=== PATIENT | female | born 1970 | race African-American/Black ===

== ENCOUNTER 2020-09-30 01:52 | Outpatient (CLI) | payer OTHER, SELFPAY ==
[2020-09-30 21:19] LABS: SARS-CoV-2 RNA PCR Negative
== END 2020-09-30 01:53 | disposition home or self-care (01) ==
LOC: ANHCOVIDDT 01:54
PROVIDERS: PCP Family Medicine; Visit Provider Obstetrics & Gynecology
DX: Z01.812 Encounter for preprocedural laboratory examination (principal); Z20.828 Contact with and (suspected) exposure to other viral communicable diseases
CPT/HCPCS: 87635; C9803; U0003

== ENCOUNTER 2020-10-04 02:20 | Day surgery (SDC) | payer OTHER, SELFPAY ==
[2020-09-21 15:10] VITALS: BMI 30.9
--- NOTE | 2020-10-03 12:45 | P.PNAN_ITS ---
Anes - Initial Pre Proc Eval Procedure: Operation Date: 10/04/20 08:15 Proposed Procedures p Laparoscopic Assisted Total Vaginal Hysterectomy With Bilateral Salpingo- Oophorectomy - Nabeel Mcdonnell MD Date/Time: 10/03/20 12:45 Surgeon: Nabeel Mcdonnell MD Pre Op Diagnosis: Uterine Lieomyoma Patient Data Age: 50 Gender: F Height: 1.57 m Weight: 76.66 kg Allergies Allergy/AdvReac Type Severity Reaction Status Date / Time acetaminophen AdvReac Nausea Verified 10/04/20 07:01 gluten AdvReac Gastrointestinal Verified 10/04/20 07:01 Upset Home Medications Medication Instructions Recorded Confirmed Type Vitamin C 1 tablet PO DAILY 09/21/20 10/04/20 History calcium 1 tablet PO DAILY 09/21/20 10/04/20 History ywfhhrt-[id number]-bahn 1 tablet PO DAILY 09/21/20 10/04/20 History drospirenone (contraceptive) 4 mg PO DAILY 09/21/20 10/04/20 History [Slynd] iron 1 tablet PO DAILY 09/21/20 10/04/20 History multivitamin 1 tablet PO DAILY 09/21/20 10/04/20 History omega-3 fatty acids [Fish Oil] 1,000 mg PO DAILY 09/21/20 10/04/20 History Patient hx anesthesia problems: none Family hx anesthesia problems: none [facility] Past Medical History Medical History (Updated 10/03/20 @ 12:46 by Hollis Kumar DO) Anemia Fibroid Surgical History Surgical History (Updated 10/03/20 @ 12:46 by Hollis Kumar DO) History of History of tubal ligation Social History Social History Smoking status: Never smoker Alcohol intake: current Drinks per week: 2 Spiritual care concerns: No Anes - Eval Final PreProcedure Day of Procedure 10/03/20 12:45 Patient weight: obese Heart: regular rate and rhythm Lungs: clear to auscultation and normal air movement Airway: Mallampati scale class 1 Neurological: alert and oriented Last oral intake: >/= 8 hours ASA classification: II Emergent: no Anesthetic plan: proceed Anesthesia type and monitoring: general ETT and standard monitoring Informed Consent: The patient's anesthetic plan and its attendant risks and benefits were discussed with the patient/family/POA. Questions were solicited and answers provided to the satisfaction of the patient/family/POA.
[2020-10-04] VITALS (15 sets, daily range): BP systolic 96–137; BP diastolic 50–86; PULSE 71–104; RESP 14–20; TEMP 36.2–36.7; O2SAT 94–100
[2020-10-04] MEDS: KETOROLAC 15 MG/ML VIAL (*BKC) IV PUSH (07:22)
[2020-10-04] MEDS: LACTATED RINGERS 1,000 ML 30 ML IV CONT ×2 (07:27→12:18)
--- NOTE | 2020-10-04 07:32 | WPDHPUPDATE1 ---
History and Physical Update Update Date/Time: 10/04/20 07:32 History and Physical has been reviewed, including an updated exam of the patient. There are NO changes in the patient's condition. Risks, benefits, and alternatives have been discussed and questions answered. Patient agrees to proceed with procedure.
[2020-10-04] MEDS: ceFAZolin 2 GM/D5W 50 ML 2 GM/50 ML BAG IVPB (09:01)
--- NOTE | 2020-10-04 12:01 | SUR.OPER ---
EBL:200cc
--- NOTE | 2020-10-04 12:02 | SUR.OPER ---
URINE:100cc
--- NOTE | 2020-10-04 12:28 | PM.PROC ---
Procedure Note - Detailed Date of procedure: 10/04/20 Pre-op diagnosis: Uterine Lieomyoma Severe menorrhagia Post-op diagnosis: same Procedure performed: Total laparoscopic hysterectomy bilateral salpingo-oophorectomy Description of procedure: The patient was taken to the operating room. She was prepped and draped in the dorsal lithotomy position. A speculum was placed in the vagina. The cervix was grasped with a tenaculum. Stay sutures were placed at 3 and 9:00 a.m. of 0 Vicryl. The stay sutures were brought through the Catr[place]ito up. The HUMBLE manipulator was placed in the vagina with a fixed Catr[place]ito cup. The cup was then pushed up around the cervix. The sutures were tied to the handle of the HUMBLE manipulator. A 5 mm incision was made on the abdominal skin of the left upper quadrant using a scalpel. A 5 mm trocar was inserted into the intra-abdominal cavity under direct visualization the scope. Pneumoperitoneum was achieved. An 11 mm incision was made in the left lower quadrant of the abdomen with a scalpel. A 11 mm trocar was inserted into the intra-abdominal cavity under direct visualization the scope. A 5 mm periumbilical incision was made. A 5 mm scope was placed into the intra-abdominal cavity under direct visualization of the scope. The ureters were identified. The ureters were observed to be away from the infundibulopelvic ligaments. These infundibulopelvic ligaments were isolated, cauterized, and transected with LigaSure cautery. This was done in a bilateral fashion. The para ovarian tissue along the pelvic sidewall was cauterized and transected in a bilateral fashion using the ligature cautery. The round ligaments were cauterized and transected bilaterally with LigaSure cautery. The broad ligaments were cauterized and transected along the lateral aspects of the uterus down the level of the uterine arteries. A bladder flap was created using sharp and blunt dissection. The ureters were dissected out bilaterally down to the level of the uterine arteries. The could be visualized from the pelvic brim down the uterine arteries. Staying very close to the cervix the parametrium was cauterized transected in a stepwise fashion down to the level of the Catrachito cup. The Bladder flap was moved distally over the Catrachito cup using sharp and blunt dissection. The cup was visualized and a complete 360 degree papillary around the cervix. An incision was made with unipolar cautery down under the Catr[place]ito cup creating a colpotomy incision all the way around the cervix. The uterus was transected at the cervix. The body of the uterus was then cut into 4 pieces using a tenaculum and unipolar cautery. Prior to this a right lower quadrant trocar was placed. A 5 mm skin incision was made with a scalpel and a 5 mm trocar was inserted under direct visualization of the scope. The uterus was cut into 4 pieces using a unipolar cautery 2 tenaculum putting traction, counter traction on the uterus. To the pieces were tagged with sutures and surgical clips were placed on the sutures. Those surgical clips were placed in the vagina. The tagged pieces were taken out through the vagina 1st of the cervix was removed along with the HUMBLE manipulator through the vagina. The 2 pieces were pulled out easily through the vagina. Remaining pieces were then placed in the vagina. The pneumo occluder was removed the pieces were removed and the pneumo occluder was replaced. The vagina was closed with 0 V lock suture in a running fashion. The ureters were identified again and found to be intact elevated and the uterine arteries. The pelvis was irrigated with a copious amount of antibiotic irrigation. The pneumoperitoneum was reduced. The trocars were removed. The skin was closed subcuticular 4 Monocryl covered with Dermabond. The pneumo occluder was removed from the vagina. The vagina was irrigated with Betadine. The patient tolerated the procedure well. She was taken to the recovery room in stable cond
[2020-10-04] MEDS: ONDANSETRON INJ 4 MG/2 ML VIAL IV PUSH (13:15)
--- NOTE | 2020-10-04 13:23 | PC.NURSE ---
Pt admitted to room 289 per bed from PACU. Alert and oriented x3. Call light within reach.
[2020-10-04] MEDS: KETOROLAC 30 MG/ML VIAL (*BKC) IV PUSH ×2 (14:19→19:46)
[2020-10-04] MEDS: METOCLOPRAMIDE HCL INJ 10 MG/2 ML VIAL (14:20)
[2020-10-04] MEDS: LACTATED RINGERS 1,000 ML 125 ML IV CONT (14:22)
[2020-10-04] MEDS: diphenhydrAMINE HCl INJ 50 MG/ML VIAL 25 MG IV PUSH (16:34)
[2020-10-04] MEDS: LACTATED RINGERS 1,000 ML 125 ML (21:30)
[2020-10-04] MEDS: SIMETHICONE 80 MG TAB.CHEW (21:30)
[2020-10-05 04:30] VITALS: BP 119/73; PULSE 111; RESP 16; TEMP 36.8
[2020-10-05] MEDS: KETOROLAC 30 MG/ML VIAL (*BKC) IV PUSH (04:30)
[2020-10-05] MEDS: SIMETHICONE 80 MG TAB.CHEW PO ×2 (04:30→08:38)
--- NOTE | 2020-10-05 07:59 | WPDANESPN ---
Anes - Prog Note Post-Op Date/Time: 10/05/20 07:59 Cardiovascular status: normal Respiratory status: normal Airway patency: baseline Mental status: baseline Post-Op hydration status: normal Vital Signs: Last Vital Signs Temp 36.8 C 10/05/20 04:30 Pulse 111 H 10/05/20 04:30 Resp 16 10/05/20 04:30 BP 119/73 10/05/20 04:30 Pulse Ox 99 10/04/20 16:00 Pain Score (VAS): 3 I/O: Intake & Output 10/04/20 10/04/20 10/05/20 15:59 23:59 07:59 Intake Total 671 726 6646 Output Total 30 175 1000 Balance 470 -25 0 10/04/20 08:01 Blood Type B Positive Antibody Screen Negative Post-procedural complaints: nausea (severe overnight) and vomiting Patient Feedback: Patient satisfied with anesthetic care.
--- NOTE | 2020-10-05 08:16 | PM.GYNPNOP ---
GLOBAL RECRUITER - A/P Postoperative Procedures: Procedures Operation Date: 10/04/20 08:15 Actual Procedures Side Surgeon p Laparoscopic Assisted Total Vaginal Hysterectomy With Bilateral Salpingo-Oophorectomy Bilateral Nabeel Mcdonnell MD Postoperative day: 1 Postoperative status: doing well and other (Tollerating Regular Diet) Postoperative plan: routine post-op care and discharge Time Spent With Patient Time: Total time spent is greater than 50% in coordination of care (as documented) at patient's floor/unit and/or counseling patient: Time with patient: 15 - 25 minutes GLOBAL RECRUITER- PN:Subj Post-Op Subjective Date/time seen: 10/05/20 08:16 Subjective: patient reports feeling better, pain is well controlled and patient is tolerating oral intake Exam Const: General: cooperative, healthy appearing, comfortable and no acute distress Resp: Auscultation: no crackles, no rales, no rhonchi and no wheezes Cardio: Rhythm: regular rhythm Heart sounds: no click and no murmurs GI: Inspection: non-distended Auscultation: normal bowel sounds Other: Incisions - CDI Extrem: General: normal to inspection, no pedal edema and no calf tenderness GLOBAL RECRUITER - PN: Obj Data Vital Signs Vital Signs: Vital Signs - 24 hr 10/04/20 12:18 10/04/20 12:30 10/04/20 12:45 Temperature 97.2 F L Pulse Rate 71 86 77 Respiratory Rate 14 18 18 Blood Pressure 97/50 L 105/54 L 109/50 L Pulse Oximetry 100 99 100 10/04/20 13:00 10/04/20 13:10 10/04/20 13:33 Temperature 97.8 F Pulse Rate 91 82 78 Respiratory Rate 18 18 16 Blood Pressure 102/53 L 106/51 L 121/56 L Pulse Oximetry 96 94 100 10/04/20 13:45 10/04/20 14:00 10/04/20 14:30 Temperature Pulse Rate 93 85 83 Respiratory Rate 16 16 16 Blood Pressure 123/66 116/56 L 121/65 Pulse Oximetry 100 100 100 10/04/20 15:00 10/04/20 16:00 10/04/20 17:00 Temperature 97.3 F L Pulse Rate 97 104 H 99 Respiratory Rate 16 20 18 Blood Pressure 96/76 L 117/77 137/80 Pulse Oximetry 100 99 10/04/20 18:45 10/04/20 22:50 10/05/20 04:30 Temperature 97.6 F 97.9 F 98.2 F Pulse Rate 93 87 111 H Respiratory Rate 16 16 16 Blood Pressure 114/69 109/65 119/73 Pulse Oximetry Intake/Output Intake/Output: Intake & Output 10/02/20 10/03/20 10/04/20 10/05/20 23:59 23:59 23:59 23:59 Intake Total 650 1000 Output Total 205 1000 Balance 445 0 Meds/Results Medications: Active Medications Generic Name Dose Route Start Last Admin Trade Name Freq PRN Reason Stop Dose Admin Benzocaine 1 lozenge 10/04/20 17:16 Benzocaine/Menthol (*Bkc) 18 Ea Lozenge PO PRN PRN Sore Throat Ibuprofen 600 mg 10/04/20 13:15 Ibuprofen 600 Mg Tablet PO Q6H PRN Cramping Ketorolac Tromethamine 30 mg 10/04/20 13:15 10/05/20 04:30 Ketorolac 30 Mg/Ml Vial (*Bkc) IV PUSH 10/09/20 13:16 30 mg Q6H PRN Administration Pain Rated 4-6 Metoclopramide HCl 10 mg 10/04/20 14:05 Metoclopramide Hcl Inj 10 Mg/2 Ml Vial IV PUSH Q6HR PRN Nausea Naloxone HCl 0.1 mg 10/04/20 13:15 Naloxone Hcl 0.4 Mg/Ml Vial IV PUSH Q2M PRN Respiratory rate less than 10 Ondansetron HCl 4 mg 10/04/20 13:15 Ondansetron Inj 4 Mg/2 Ml Vial IV PUSH Q6H PRN Nausea And Vomiting Simethicone 80 mg 10/04/20 21:34 10/05/20 04:30 Simethicone 80 Mg Tab.Chew PO 80 mg Q2HR PRN Administration Gas Discomfort Labs Labs: Laboratory Results - last 24 hr 10/04/20 08:01 Blood Type B Positive Antibody Screen Negative
[2020-10-05 08:20] VITALS: BP 116/75; PULSE 90; RESP 16; TEMP 37.1; O2SAT 100
[2020-10-05] MEDS: BENZOCAINE/MENTHOL (*BKC) 18 EA LOZENGE 1 LOZENGE PO (08:39)
--- NOTE | 2020-10-05 08:53 | PC.NURSE ---
Abdominal binder and incentive spirometer given to pt and explained use and purpose of each. Pt states understanding.
--- NOTE | 2020-10-05 10:00 | PC.NURSE ---
Pt states she normally takes ibuprofen for pain at home. Discussed with pt that if ibuprofen works the best for her pain control that she can continue that at home. Pt discussed the medication prescribed for her to take at home ([facility]den), stating that she normally does not take acetaminophen products. Pt. states ibuprofen will work for home use.
[2020-10-05] MEDS: diphenhydrAMINE HCl CAP 25 MG CAPSULE PO (10:30)
== END 2020-10-05 10:37 | disposition home or self-care (01) ==
LOC: ANHSURGERY 06:00 → ANHOB2 13:17
PROVIDERS: PCP Family Medicine; Visit Provider Obstetrics & Gynecology
PROC: 0UT9FZZ Resection of Uterus, Via Natural or Artificial Opening With Percutaneous Endoscopic Assistance (ICD-10-PCS; CPT 58573; principal; 2020-10-04 08:15)
DX: D25.1 Intramural leiomyoma of uterus (principal); D25.2 Subserosal leiomyoma of uterus; N80.0 Endometriosis of uterus; N73.6 Female pelvic peritoneal adhesions (postinfective); D27.0 Benign neoplasm of right ovary; N83.02 Follicular cyst of left ovary; D25.9 Leiomyoma of uterus, unspecified; E66.9 Obesity, unspecified; Z68.31 Body mass index [BMI] 31.0-31.9, adult
CPT/HCPCS: 58573; 36415; 86850; 86900; 86901; 88307; 99199; A9270; C1713; J0330; J0690; J1100; J1170; J1200; J1885; J2250; J2405; J2704; J2710; J2765; J3010; J7120

== ENCOUNTER → 2021-03-22 10:53 | Outpatient (CLI) | payer OTHER, SELFPAY ==
--- NOTE | ~2021-03-22 | MM_ITS ---
EXAMINATION: MM screening [facility] BI w [place] HISTORY: Screening TECHNIQUE: Craniocaudal and mediolateral oblique 3-D tomosynthesis images were obtained and synthetic 2-D images were generated. CAD analysis was submitted and interpreted. COMPARISON: Comparison to multiple prior studies sequentially, with oldest reviewed study dated 06/02. BREAST PARENCHYMAL COMPOSITION: There are scattered areas of fibroglandular density. FINDINGS: There is no evidence of suspicious mass, calcification, or architectural distortion to sugg est malignancy in either breast. There has been no suspicious interval change. IMPRESSION: 1. No mammographic evidence of malignancy. 2. Recommend routine screening mammography in one year. BI-RADS Category 1: Negative Reviewed, dictated and finalized at location A.
== END ==
PROVIDERS: Visit Provider Obstetrics & Gynecology
DX: Z12.31 Encounter for screening mammogram for malignant neoplasm of breast (principal)
CPT/HCPCS: 77063; 77067

== ENCOUNTER → 2022-07-12 11:34 | Outpatient (CLI) | payer OTHER, SELFPAY ==
--- NOTE | ~2022-07-12 | MM_ITS ---
EXAMINATION: MM screening [facility]ulu BI w ok HISTORY: Screening TECHNIQUE: Craniocaudal and mediolateral oblique 3-D tomosynthesis images were obtained and synthetic 2-D images were generated. CAD analysis was submitted and interpreted. COMPARISON: Comparison to multiple prior studies sequentially, with oldest reviewed study dated 06/02. BREAST PARENCHYMAL COMPOSITION: Breast composed of scattered areas of fibroglandular density FINDINGS: There is no evidence of suspicious mass, calcification, or architectural distortion to sugg est malignancy in either breast. There has been no suspicious interval change. IMPRESSION: 1. No mammographic evidence of malignancy. 2. Recommend routine screening mammography in one year. BI-RADS Category 1: Negative Reviewed, dictated and finalized at location A.
== END ==
PROVIDERS: PCP Internal Medicine; Visit Provider Internal Medicine
DX: Z12.31 Encounter for screening mammogram for malignant neoplasm of breast (principal)
CPT/HCPCS: 77063; 77067

== ENCOUNTER → 2023-09-08 12:19 | Outpatient (CLI) | payer OTHER, SELFPAY ==
--- NOTE | ~2023-09-08 | MM_ITS ---
EXAMINATION: MM screening lulu BI w ok HISTORY: Screening mammogram TECHNIQUE: Craniocaudal and mediolateral oblique 3-D tomosynthesis images were obtained and synthetic 2-D images were generated. CAD analysis was submitted and interpreted. COMPARISON: 07/12/2022, 03/22/2021, 12/17/2018 bilateral screening mammogram examinations BREAST PARENCHYMAL COMPOSITION: There are scattered areas of fibroglandular density. FINDINGS: There is no evidence of suspicious mass, calcification, or architectural distortion to sugg est malignancy in either breast. There has been no suspicious interval change. IMPRESSION: 1. No mammographic evidence of malignancy. 2. Recommend routine screening mammography in one year. BI-RADS Category 1: Negative Reviewed, dictated and finalized at location A.
== END ==
PROVIDERS: PCP Internal Medicine; Visit Provider Internal Medicine
DX: Z12.31 Encounter for screening mammogram for malignant neoplasm of breast (principal)
CPT/HCPCS: 77063; 77067

== ENCOUNTER 2024-09-10 11:40 | Outpatient (CLI) | payer OTHER, SELFPAY ==
--- NOTE | ~2024-09-10 | MM_ITS ---
EXAMINATION: MM screening lulu BI w ok HISTORY: Screening TECHNIQUE: Craniocaudal and mediolateral oblique 3-D tomosynthesis images were obtained and synthetic 2-D images were generated. CAD analysis was submitted and interpreted. COMPARISON: Comparison to multiple prior studies sequentially, with oldest reviewed study dated 09/17. BREAST PARENCHYMAL COMPOSITION: Not dense: There are scattered areas of fibroglandular density. FINDINGS: There is no evidence of suspicious mass, calcification, or architectural distortion to sugg est malignancy in either breast. There has been no suspicious interval change. IMPRESSION: 1. No mammographic evidence of malignancy. 2. Recommend routine screening mammography in one year. BI-RADS Category 1: Negative Reviewed, dictated and finalized at location B.
== END 2024-09-10 11:41 | disposition home or self-care (01) ==
LOC: MICIMG 11:44
PROVIDERS: PCP Internal Medicine; Visit Provider Internal Medicine
DX: Z12.31 Encounter for screening mammogram for malignant neoplasm of breast (principal)
CPT/HCPCS: 77063; 77067

== ENCOUNTER 2025-09-16 11:43 | Outpatient (CLI) | payer OTHER, SELFPAY ==
--- NOTE | ~2025-09-16 | MM_ITS ---
EXAMINATION: MM screening lulu BI w ok HISTORY: Screening TECHNIQUE: Craniocaudal and mediolateral oblique 3-D tomosynthesis images were obtained and synthetic 2-D images were generated. CAD analysis was submitted and interpreted. COMPARISON: Comparison to multiple prior studies sequentially, with oldest reviewed study dated 10/01/2016. BREAST PARENCHYMAL COMPOSITION: Not Dense: The breasts are almost entirely fatty. FINDINGS: There is no evidence of suspicious mass, calcification, or architectural distortion to suggest malignancy in either breast. There has been no suspicious interval change. IMPRESSION: 1. No mammographic evidence of malignancy. 2. Recommend routine screening mammography in one year. BI-RADS Category 1: Negative Reviewed, dictated and finalized at location B.
== END 2025-09-16 11:44 | disposition home or self-care (01) ==
LOC: MICIMG 11:45
PROVIDERS: PCP Internal Medicine; Visit Provider Internal Medicine
DX: Z12.31 Encounter for screening mammogram for malignant neoplasm of breast (principal)
CPT/HCPCS: 77063; 77067